=== PATIENT | male | born 2000 | race Caucasian/White ===

== ENCOUNTER 2019-07-10 13:25 | Emergency (ER) | payer BC ==
[~2019-07-10] VITALS: Ht 177.8 cm; Wt 72.6 kg
[2019-07-10] MEDS ORDERED: SUBOXONE 12 MG1 EACH SL (13:42)
[2019-07-10] MEDS ORDERED: SEROQUEL200 MG ORAL (13:42)
--- NOTE | 2019-07-10 13:45 | NUR ---
ED Nurse Note: Patient arrived to ED by car from sober living with girlfriend. Per girlfriend, patient took meth and herorin this AM. Patient is having visual hallucinations, but is AxO x 4. Patient denies wanting to hurt himself or others. Patient cooperative. Patient on the shelter monitor, bed in lowest position. Blood sent to lab.
[2019-07-10 14:43] LABS: BASOPHILS % (AUTO) 0.4 % (0.0-2.0); EOSINOPHILS % (AUTO) 0.3 % (0.0-3.0); HEMATOCRIT 39.5 % (42.0-52.0); HEMOGLOBIN 14.6 G/DL (14.2-18.0); LYMPHOCYTES % (AUTO) 19.5 % (20.0-45.0); MEAN CORPUSCULAR VOLUME 81 FL (80-99); MONOCYTES % (AUTO) 9.3 % (1.0-10.0); NEUTROPHILS % (AUTO) 70.6 % (45.0-75.0); PLATELET COUNT 226 K/UL (150-450); RED BLOOD COUNT 4.88 M/UL (4.70-6.10); RED CELL DISTRIBUTION WIDTH 9.9 % (11.6-14.8); WHITE BLOOD COUNT 7.2 K/UL (4.8-10.8)
[2019-07-10 15:00] LABS: ANION GAP 18 mmol/L (5-15); BLOOD UREA NITROGEN 14 mg/dL (7-18); CALCIUM 9.8 MG/DL (8.5-10.1); CARBON DIOXIDE 19 MMOL/L (21-32); CHLORIDE 101 MMOL/L (98-107); CREATININE 1.1 MG/DL (0.55-1.30); SODIUM 138 MMOL/L (136-145)
[2019-07-10 15:12] LABS: ALANINE AMINOTRANSFERASE 159 U/L (12-78); ALBUMIN 5.1 G/DL (3.4-5.0); ALBUMIN/GLOBULIN RATIO 1.5 (1.0-2.7); ALKALINE PHOSPHATASE 71 U/L (46-116); ASPARTATE AMINO TRANSFERASE 59 U/L (15-37); BILIRUBIN,TOTAL 1.7 MG/DL (0.2-1.0)
[2019-07-10 15:15] LABS: BILIRUBIN,DIRECT 0.3 MG/DL (0.0-0.3)
[2019-07-10 16:13] LABS: APPEARANCE,URINE SLIGHTLY CLOUDY; BILIRUBIN, URINE NEGATIVE (NEGATIVE); COLOR,URINE PALE YELLOW; GLUCOSE, URINE (UA) NEGATIVE (NEGATIVE); KETONES,URINE 4+ (NEGATIVE); LEUKOCYTE ESTERASE ,URINE NEGATIVE (NEGATIVE); NITRITE,URINE NEGATIVE (NEGATIVE); PH,URINE 6.5 (4.5-8.0); PROTEIN,URINE NEGATIVE (NEGATIVE); UROBILINOGEN,URINE NORMAL MG/DL (0.0-1.0)
[2019-07-10 16:29] VITALS: BP 124/70
--- NOTE | 2019-07-10 16:30 | NUR ---
ED Nurse Note: first contact with pt. pt sleeping easily awakens to verbal stimuli. pt relates no hallucianatons at this time but does have mild nausea. no active vomiting. tolerates ivf well.
--- NOTE | 2019-07-10 16:51 | Emergency Room Report ---
History of Present Illness General Chief Complaint: Substance Abuse Source: Patient Present Illness HPI 19-year-old male with history of heroine abuse and methamphetamine use here complaining of psychosocial stressor yesterday after injecting methamphetamine. Patient reports that he injected methamphetamine as well as heroin at the same time. Track valdez are noted. However do not appear infected. Denies fever and chills, chest pain, shortness of breath, palpitation, abdominal pain, dizziness and headache. Complains of tingling in all extremities and having hallucinations however denies suicidal homicidal ideation. Patient is coming here from sober living and is here with his girlfriend. Patient is currently on Suboxone. Allergies: Coded Allergies: No Known Allergies (Unverified , 07/10/19) Patient History Past Medical History: see triage record Past Surgical History: unable to obtain Pertinent Family History: unable to obtain Social History: Reports: drug use - heroine and meth Immunizations: UTD Reviewed Nursing Documentation: PMH: Agreed; PSxH: Agreed Review of Systems All Other Systems: negative except mentioned in HPI Physical Exam Vital Signs Date Time Temp Pulse Resp B/P (MAP) Pulse Ox O2 Delivery O2 Flow Rate FiO2 07/10/19 13:36 97.2 109 23 124/81 (95) 97 Room Air Sp02 EP Interpretation: reviewed, normal General Appearance: no apparent distress, alert, GCS 15, non-toxic Head: normocephalic, atraumatic Eyes: bilateral eye normal inspection, bilateral eye PERRL ENT: hearing grossly normal, normal pharynx, no angioedema, normal voice Neck: full range of motion, supple/symm/no masses Respiratory: chest non-tender, lungs clear, normal breath sounds, no rhonchi, speaking full sentences Cardiovascular #1: regular rate, rhythm, no edema, no murmur Cardiovascular #2: 2+ radial (R), 2+ radial (L) Gastrointestinal: normal bowel sounds, non tender, soft, non-distended, no guarding, no rebound Rectal: deferred Genitourinary: no CVA tenderness Musculoskeletal: back normal, gait/station normal, normal range of motion, non- tender Neurologic: alert, oriented x3, responsive Psychiatric: judgement/insight normal, mood/affect normal, no suicidal/ homicidal ideation Skin: no rash Lymphatic: normal inspection, no adenopathy Medical Decision Making PA Attestation All my diagnosis and treatment plans were reviewed ad discussed with my supervising physician Dr. Ornelas Diagnostic Impression: Primary Impression: Methamphetamine-induced psychotic disorder ER Course 19-year-old male with history of heroine abuse and methamphetamine use here complaining of psychosocial stressor yesterday after injecting methamphetamine. Patient reports that he injected methamphetamine as well as heroin at the same time. Track valdez are noted. However do not appear infected. Denies fever and chills, chest pain, shortness of breath, palpitation, abdominal pain, dizziness and headache. Complains of tingling in all extremities and having hallucinations however denies suicidal homicidal ideation. Patient is coming here from sober living and is here with his girlfriend. Patient is currently on Suboxone. Ddx considered but are not limited to: generalized anxiety disorder, panic attack, depression with psychotic feature, bipolar disorder, drug overdose Vital signs: are WNL, pt. is afebrile H&PE are most consistent with: Methamphetamine induced psychosis, heroin abuse ORDERS: Psychiatric order set ED INTERVENTIONS: NS bolus, Zofran, Pepcid DISCHARGE: At this time pt. is stable for d/c to home. Will provide printed patient care instructions, and any necessary prescriptions. Care plan and follow up instructions have been discussed with the patient prior to discharge. Patient to follow-up with a primary care provider as well as going back to sober living. Patient does not have any suicidal homicidal ideation at time of discharge. Patient feels better and no longer has psychosis or tingling sensation. Last Vital Signs Date Time Temp Pulse Resp B/P (MAP) Pulse Ox O2 Delivery O2 Flow Rate FiO2 07/10/19 16:29 65 18 124/70 98 Room Air 07/10/19 13:36 97.2 Disposition: HOME, SELF-CARE Condition: Stable Referrals: NOT CHOSEN IPA/,REFERRING (PCP) Patient Instructions: Stimulant Use Disorder-Methamphetamines, Substance Use Disorder Additional Instructions: Follow-up with your sober living avoid using methamphetamine and heroine as methamphetamine can cause psychosis and you need to get yourself into psychiatric management and therapy. If worsening symptoms return to emergency room Talon Gary Jul 10, 2019 16:51
--- NOTE | 2019-07-10 17:01 | NUR ---
ED Nurse Note: pt to be dc after ns #2 liter bolus infused.
[2019-07-10 17:30] VITALS: BP 124/70
--- NOTE | 2019-07-10 17:33 | NUR ---
ER DISCHARGE NOTE: Patient is cleared to be discharged per ERMD, pt is aox4, on room air, with stable vital signs. pt was given dc instrucitons. pt was able to verbalize understanding, pt id band and iv site removed without complications. pt is able to ambulate with steady gait. pt took all belongings. pt accompanied by girlfriend who states they have a ride back to sober living house. pt A/Ox4 upon dc
--- NOTE | 2019-07-12 14:02 | Cardiology Report ---
APPROVED REPORT EKG Measurement Heart [id number] Normal sinus rhythm with sinus arrhythmia Incomplete right bundle branch block Borderline ECG
== END 2019-07-10 17:30 | disposition home or self-care (01) ==
LOC: EMR 14:36
DX: F15.959 Other stimulant use, unspecified with stimulant-induced psychotic disorder, unspecified (principal)
CPT/HCPCS: 36415; 80053; 80307; 81003; 82248; 82962; 84484; 85025; 93005; 96361; 96374; 99284; G0480; J2405; J7030; J8499